=== PATIENT | male | born 1970 | race Caucasian/White ===

== ENCOUNTER → 2017-05-11 | Outpatient (CLI) | payer OTHER ==
[2017-05-11 09:32] LABS: BASO # 0.1 x10^3/uL (0.0-0.2); BASO % 1 % (0-3); EOS # 0.2 x10^3/uL (0.0-0.7); EOS % 3 % (0-3); HEMATOCRIT 44.9 % (39.0-53.0); HEMOGLOBIN 15.5 g/dL (13.0-17.5); LYMPH # 1.8 x10^3/uL (1.0-4.8); LYMPH % 29 % (24-48); MEAN CORPUSCULAR HEMOGLOBIN 30 pg (25-35); MEAN CORPUSCULAR HGB CONC 35 g/dL (31-37); MEAN CORPUSCULAR VOLUME 86 fL (79-100); MONO # 0.4 x10^3/uL (0.0-1.1); MONO % 7 % (0-9); NEUT # 3.8 x10^3uL (1.8-7.7); NEUT % 61 % (31-73); PLATELET COUNT 269 x10^3/uL (140-400); RED BLOOD COUNT 5.24 x10^6/uL (4.30-5.70); RED CELL DISTRIBUTION WIDTH 13.3 % (11.5-14.5); WHITE BLOOD COUNT 6.3 x10^3/uL (4.0-11.0)
[2017-05-11 09:39] LABS: ALBUMIN/GLOBULIN RATIO 1.2 (1.0-1.7); CALCIUM 9.1 mg/dL (8.5-10.1); CREATININE 0.9 mg/dL (0.7-1.3); GFR 89.7; POTASSIUM 4.3 mmol/L (3.5-5.1); TOTAL BILIRUBIN 0.4 mg/dL (0.2-1.0); TOTAL PROTEIN 7.3 g/dL (6.4-8.2)
--- NOTE | 2017-05-11 10:07 | RAD ---
Examination: Bilateral knees, bilateral ankles and bilateral feet History: History of bilateral feet, ankles, knee pain for 2 months, difficulty walking graft comparison: None available Findings: Right knee: 2 cannulated partially threaded screws identified transfixing the proximal tibia transfixing the proximal medial tibia demonstrating a faint vertical line probably known fracture or osteotomy changes. The alignment of the knee joint grossly appears unremarkable. Mild joint space loss medial compartment. Left knee: The alignment of knee joint grossly appears unremarkable. Mild joint space loss medial compartment. There is no obvious acute fracture identified. Bilateral ankle: The ankle mortise grossly appears unremarkable. Mild joint space loss identified in the right and left ankle likely secondary to degeneration. Bilateral feet: Mild joint space loss identified in the first metatarsophalangeal joints bilaterally. The alignment of the tarsal bones, metatarsal phalangeal joints, interphalangeal grossly appears unremarkable. Small enthesophyte identified in the plantar aspect and the posterior calcaneus of the bilateral feet. Impression: 1. 2 cannulated partially threaded screws identified transfixing the right proximal tibia transfixing the proximal medial tibia demonstrating a faint vertical line probably known fracture or osteotomy changes. 2. Mild degenerative changes medial compartments of the bilateral knees, ankle joints, first metatarsophalangeal joints.
[2017-05-11 10:51] LABS: SEDIMENTATION RATE 11 (0-15)
[2017-05-11 13:40] LABS: FREE T4 0.95 ng/dL (0.76-1.46); THYROID STIM HORMONE (TSH) 3.912 uIU/mL (0.358-3.740)
[2017-05-11 18:08] LABS: TESTOSTERONE TOTAL 498 ng/dL (264-916)
[2017-05-12 04:09] LABS: RHEUMATOID FACTOR <10.0 IU/mL (0.0-13.9)
[2017-05-12 21:10] LABS: CYCLIC CITRULLIN PEP AB 5 units (0-19)
== END | disposition home or self-care (01) ==
LOC: DXRAD 07:45
PROVIDERS: ATTEND Family Medicine
DX: M17.0 Bilateral primary osteoarthritis of knee (principal); M19.071 Primary osteoarthritis, right ankle and foot; M19.072 Primary osteoarthritis, left ankle and foot
CPT/HCPCS: 36415; 73562; 73610; 73630; 80053; 80061; 82306; 82607; 82746; 84403; 84439; 84443; 85025; 85651; 86200; 86431

== ENCOUNTER 2017-10-07 11:10 | Emergency (ER) | payer OTHER ==
[~2017-10-07] VITALS: Ht 182.9 cm; Wt 95.3 kg
--- NOTE | 2017-10-07 11:40 | PHYS DOC ---
Past History Past Medical History: High Cholesterol, Heart Disease, Hypertension, Hypothyroid Additional Past Medical Histor: cardiac ablation Past Surgical History: Knee Replacement, Other Smoking: Less than 1pk/day Alcohol Use: None Drug Use: None Adult General Chief Complaint Chief Complaint: FINGER INJURY [facility] HPI 47-year-old right-handed male patient states he dropped about 400 pounds metal on his right second and third finger while he was at work. Patient denies open wound, other injuries, focal neuro deficit. Patient rated his pain 5/10 and does not want to have pain medication. Patient states his last tetanus shot was 4 or 5 years ago. Review of Systems Review of Systems Constitutional: Denies fever or chills [] Eyes: Denies change in visual acuity, redness, or eye pain [] HENT: Denies nasal congestion or sore throat [] Respiratory: Denies cough or shortness of breath [] Cardiovascular: No additional information not addressed in HPI [] GI: Denies abdominal pain, nausea, vomiting, bloody stools or diarrhea [] : Denies dysuria or hematuria [] Musculoskeletal: Denies back pain , reports joint pain [] Integument: Denies rash or skin lesions [] Neurologic: Denies headache, focal weakness or sensory changes [] Endocrine: Denies polyuria or polydipsia [] All other systems were reviewed and found to be within normal limits, except as documented in this note. Allergies Allergies Allergies Coded Allergies Type Severity Reaction Last Updated Verified Penicillins Allergy rash 08/11/13 Yes Physical Exam Physical Exam Constitutional: Well developed, well nourished, mild distress, non-toxic appearance. [] HENT: Normocephalic, atraumatic, bilateral external ears normal, oropharynx moist, no oral exudates, nose normal. [] Eyes: PERRLA, EOMI, conjunctiva normal, no discharge. [] Neck: Normal range of motion, no tenderness, supple, no stridor. [] Cardiovascular:Heart rate regular rhythm, no murmur [] Lungs & Thorax: Bilateral breath sounds clear to auscultation [] Skin: Warm, dry, no erythema, no rash. [] Extremities: Right second finger with small subungual hematoma without open wound or edema or deformity, right third finger with mild tenderness without deformity or edema Neurologic: Alert and oriented X 3, normal motor function, normal sensory function, no focal deficits noted. [] Psychologic: Affect normal, judgement normal, mood normal. [] EKG EKG [] Radiology/Procedures Radiology/Procedures [] [facility] [place] [id number] IMAGING REPORT Signed PATIENT: ADRI FERNANDEZ ACCOUNT: [id number] : 1970 LOCATION: ER AGE: 47 SEX: M EXAM STATUS: REG ER ORD. PHYSICIAN: ADARSH BRISENO MD REASON: second and third finger injury PROCEDURE: HAND LEFT 3V 3 view left hand study History: Attention second and third digits. Steel plate dropped onto hand this a.m. Blood collection under nails of the second and third digits. Pain and swelling. Findings: There are nondisplaced fractures of the distal tuft of the second and third distal phalanges. Deformity of the fifth metacarpal bone is seen due to an old healed fracture. No dislocation or osteolytic process is seen. IMPRESSION: Acute post traumatic fractures of the second and third distal phalanges. DICTATED AND SIGNED BY: STACY ARCHULETA MD DATE: 10/07/17 1215 CC: STACEY CHAMPION MD; ADARSH BRISENO MD ~ Course & Med Decision Making Course & Med Decision Making Pertinent Imaging studies reviewed. (See chart for details) Evaluation of patient in ER showed 47-year-old male patient with injury to right second and third finger. X-ray showed nondisplaced distal phalanx fracture. Aluminium splint applied by [employer] and patient instructed to follow-up with primary care physician and work comp and orthopedic alcohol. I've spoken with the patient and/or caregivers. I've explained the patient's condition, diagnosis and treatment plan based on information available to me at this time. I've answered the patient's and/or caregivers questions and addressed any concerns. The patient and/or caregivers have a good understanding the patient's diagnosis, condition and treatment plan as can be expected at this point. Vital signs have been stabilized. The patient's condition is stable for discharge from the emergency department. The patient will pursue further outpatient evaluation with her primary care provider or other designated consulting physician as outlined in the discharge instructions. Patient and/or caregivers are agreeable to this plan of care and follow-up instructions have been explained in detail. The patient and/or caregivers have received these instructions in written format and expressed understanding of these discharge instructions. The patient and her caregivers are aware that if any significant change in condition or worsening of symptoms should prompt him to immediately return to this of the closest emergency department. If an emergent department is not readily available I would encourage him to call 911. [] Dragon Disclaimer Dragon Disclaimer This electronic medical record was generated, in whole or in part, using a voice recognition dictation system. Departure Departure: Impression: Primary Impression: Fracture of distal phalanx of index finger Additional Impression: Fracture of distal phalanx of middle finger Disposition: HOME, SELF-CARE (At 1240) Condition: IMPROVED Referrals: STACEY CHAMPION MD (PCP) STACEY MITCHELL MD Patient Instructions: Finger Fracture (Phalangeal)-[facility] Additional Instructions: Follow-up acute orthopedic physician in 2 or 3 days Return if not getting better Scripts Hydrocodone Bit/Acetaminophen (NORCO 5-325 TABLET) 1 Each Tablet 1 TAB PO PRN Q6HRS Y for PAIN, #20 TAB 0 Refills Prov: ADARSH BRISENO MD 10/07/17 Problem Qualifiers ADARSH BRISENO MD Oct 07, 2017 11:40
--- NOTE | 2017-10-07 12:20 | RAD ---
3 view left hand study History: Attention second and third digits. Steel plate dropped onto hand this a.m. Blood collection under nails of the second and third digits. Pain and swelling. Findings: There are nondisplaced fractures of the distal tuft of the second and third distal phalanges. Deformity of the fifth metacarpal bone is seen due to an old healed fracture. No dislocation or osteolytic process is seen. IMPRESSION: Acute post traumatic fractures of the second and third distal phalanges.
[2017-10-07] MEDS ORDERED: HYDR-971 PO (12:31)
[2017-10-07 12:40] VITALS: BP 128/76
== END 2017-10-07 12:40 | disposition home or self-care (01) ==
LOC: ER 11:10
DX: S62.631A Displaced fracture of distal phalanx of left index finger, initial encounter for closed fracture (principal); S62.633A Displaced fracture of distal phalanx of left middle finger, initial encounter for closed fracture; E78.00 Pure hypercholesterolemia, unspecified; I11.9 Hypertensive heart disease without heart failure; E03.9 Hypothyroidism, unspecified; F17.200 Nicotine dependence, unspecified, uncomplicated; Z88.0 Allergy status to penicillin; W20.8XXA Other cause of strike by thrown, projected or falling object, initial encounter; Y93.89 Activity, other specified; Y99.8 Other external cause status; Y92.89 Other specified places as the place of occurrence of the external cause
CPT/HCPCS: 29130; 73130; 99284

== ENCOUNTER 2021-12-13 10:42 | Emergency (ER) | payer OTHER ==
[~2021-12-13] VITALS: Ht 182.9 cm; Wt 113.0 kg
[~2021-12-13 10:42] MED LIST: HYDR-3165 PO
[2021-12-13 10:56] VITALS: BP 155/97
[2021-12-13] MEDS ORDERED: BACITRACIN ZINC TOPICAL OINT PACKET. TP ONE ×2 (11:05→11:15)
[2021-12-13] MEDS ORDERED: BACI1PAC4 TP (11:09)
--- NOTE | 2021-12-13 11:09 | PHYS DOC ---
Past History Past Medical History: High Cholesterol, Heart Disease, Hypertension, Hypothyroid Additional Past Medical Histor: cardiac ablation Past Surgical History: Appendectomy, Knee Replacement, Other Additional Past Surgical Histo: ablation, shoulder surgery Smoking: Less than 1pk/day Alcohol Use: None Drug Use: None General Adult EDM: Chief Complaint: LACERATION/AVULSION HPI: HPI: Patient is a 51-year-old male presents with a laceration over the volar aspect of the right thumb at the metacarpal phalangeal joint. Patient states that he cut it on a sharp piece of metal which slid across his hand. He has not had any numbness or weakness distally. Denies any pain. States he has normal range of motion and function with his thumb. Last tetanus was a few weeks ago. Review of Systems: Review of Systems: Constitutional: Denies fever Eyes: Denies change in visual acuity or eye pain HENT: Denies sore throat Respiratory: Denies shortness of breath Cardiovascular: Denies chest pain GI: Denies abd pain : Denies dysuria Musculoskeletal: Denies back injury Integument: Denies rash or skin lesions Neurologic: Denies headache, focal weakness or sensory changes All other systems were reviewed and found to be within normal limits, except as documented in this note. Allergies: Allergies: Allergies Coded Allergies Type Severity Reaction Last Updated Verified Penicillins Allergy Unknown rash 12/13/21 Yes Physical Exam: PE: Constitutional: Well developed, well nourished, no acute distress, non-toxic appearance. HENT: Normocephalic, atraumatic, bilateral external ears normal, mucosa moist, nose normal. Eyes: EOMI, conjunctiva normal, no discharge. Neck: Normal range of motion, supple, no stridor, no meningeal signs. Cardiovascular: Regular rate and rhythm Lungs & Thorax: Bilateral breath sounds clear to auscultation Abdomen: Soft, no tenderness or obvious masses Skin: Warm, dry, no erythema, no rash. Extremities: No tenderness, no cyanosis, no clubbing, ROM intact, no edema, superficial 1 cm laceration over the volar portion of the metacarpophalangeal joint skin tissue of the right thumb. This does not involve any of the deeper structures and does not require sutures at this time.. Neurologic: Alert and oriented, normal motor function, normal sensory function, no focal deficits noted. Psychologic: Affect normal, judgement normal, mood normal. Current Patient Data: Vital Signs: Vital Signs Date Time Temp Pulse Resp B/P (MAP) Pulse Ox O2 Delivery O2 Flow Rate FiO2 12/13/21 10:56 98.0 77 18 155/97 (116) 97 EKG: EKG: [] Radiology/Procedures: Radiology/Procedures: [] Heart Score: C/O Chest Pain: No Risk Factors: Risk Factors: DM, Current or recent (<one month) smoker, HTN, HLP, family history of CAD, obesity. Risk Scores: Score 0 - 3: 2.5% MACE over next 6 weeks - Discharge Home Score 4 - 6: 20.3% MACE over next 6 weeks - Admit for Clinical Observation Score 7 - 10: 72.7% MACE over next 6 weeks - Early Invasive Strategies Course & Med Decision Making: Course & Med Decision Making Pertinent Labs and Imaging studies reviewed. (See chart for details) [] 51-year-old male with a superficial laceration which does not require closure. Tetanus is up-to-date. We will place some bacitracin ointment on the area and will give the patient a prescription for bacitracin twice a day for the next week. Keep the area covered with a bandage for the next few days. He is stable for discharge. Ethan Disclaimer: Ethan Disclaimer: This electronic medical record was generated, in whole or in part, using a voice recognition dictation system. Departure Departure: Impression: Primary Impression: Laceration Disposition: HOME / SELF CARE / HOMELESS Condition: STABLE Referrals: STACEY CHAMPION MD (PCP) Patient Instructions: Laceration Care, Adult Scripts Bacitracin (BACITRACIN) 1 Each Packet 1 EACH TP BID for laceration for 3 Days, #6 PKT Prov: CRYSTAL ROJAS MD 12/13/21 CRYSTAL ROJAS MD Dec 13, 2021 11:09
== END 2021-12-13 11:11 | disposition home or self-care (01) ==
LOC: ER 10:42
DX: S61.011A Laceration without foreign body of right thumb without damage to nail, initial encounter (principal); E78.00 Pure hypercholesterolemia, unspecified; I11.9 Hypertensive heart disease without heart failure; E03.9 Hypothyroidism, unspecified; F17.200 Nicotine dependence, unspecified, uncomplicated; Z88.0 Allergy status to penicillin; W26.8XXA Contact with other sharp object(s), not elsewhere classified, initial encounter; Y93.89 Activity, other specified; Y92.89 Other specified places as the place of occurrence of the external cause; Y99.8 Other external cause status
CPT/HCPCS: 99283